=== PATIENT | male | born 1945 | race Caucasian/White ===

== ENCOUNTER 2019-11-24 17:30 | Emergency (ER) | payer MEDICARE, OTHER, SELFPAY ==
[2019-11-24 17:30] VITALS: BP 148/87; PULSE 73; RESP 18; TEMP 36.3; O2SAT 97; BMI 25.8
--- NOTE | 2019-11-24 17:50 | EKG12_ITS ---
Test Reason : HYPOGLYCEMIA Blood Pressure : / mmHG Vent. Rate : 067 BPM Atrial Rate : 067 BPM P-R Int : 170 ms QRS Dur : 082 ms QT Int : 390 ms P-R-T Axes : 062 003 048 degrees QTc Int : 412 ms Normal sinus rhythm Possible Left atrial enlargement Borderline ECG Confirmed by FLAQUITO FLANAGAN, STEPHANIA ([id number]), associate entertainment editor COLEEN VALDEZ ([id number]) on 11/26/2019 12:39:09 PM Referred By: LEENA/PING Confirmed By:STEPHANIA HUDDLESTON MD
--- NOTE | 2019-11-24 17:51 | CT_ITS ---
STUDY: CT head and CTA HEAD AND NECK WITH CONTRAST REASON FOR EXAM: Male, 74 years old. Hypertensive, headache and dizziness x 2 days RADIATION DOSAGE (If Supplied By Facility): CTDIvol = ( 29.17 ) mGy, DLP = ( 1435.92 ) mGycm TECHNIQUE: CT angiography was performed with a multi-detector CT scanner. Data acquisition was obtained from the skull base through the vertex following intravenous administration of IV 100mL Isovue-[id number]. MIP images were reconstructed from the axial data set. Post-processing of the angiographic images was performed, with multiplanar reformation and 3D reconstruction. Individualized dose optimization techniques were used for this CT. COMPARISON: No relevant priors. FINDINGS: Noncontrast CT of the head normal except mild atrophy. Normal bilateral petrous carotid arteries. Normal right cavernous carotid artery with a normal supraclinoid bifurcation. Normal left cavernous carotid artery with a normal supraclinoid bifurcation. There is non-visualization of the right A1 segment of the anterior cerebral arteries consistent with either aplastic development or an occlusion. Normal left A1 segments of the anterior cerebral artery. Normal intact anterior communicating artery (ACOM). Normal bilateral A2 segments of the anterior cerebral arteries. Normal right M1 and M2 segments of the middle cerebral arteries, with a normal M1 bifurcation. Normal left M1 and M2 segments of the middle cerebral arteries, with a normal M1 bifurcation. There is non-visualization of the right posterior communicating artery (PCOM). There is non-visualization of the left posterior communicating artery (PCOM). Normal bilateral vertebral arteries. Normal basilar artery with a normal basilar bifurcation. The visualized bilateral superior cerebellar (SCA) arteries are normal. Normal bilateral P1, P2 and visualized P3 segments of the posterior cerebral arteries. There is no demonstrated aneurysm of the [place]. There is no demonstrated abnormality of the visualized brain. AORTIC ARCH: Normal visualized aortic arch. Normal origins of the brachiocephalic, left common carotid, and left subclavian arteries. RIGHT CAROTID ARTERIES: Normal right common carotid artery (CCA). Normal right common carotid bulb. Normal origin of the right internal carotid (ICA) artery without a hemodynamically significant stenosis. Normal visualized cervical portion of the right internal carotid artery. Normal origin of the right external carotid artery (ECA). LEFT CAROTID ARTERIES: Normal left common carotid artery (CCA). Normal left common carotid bulb. Normal origin of the left internal carotid (ICA) artery without a hemodynamically significant stenosis. Normal visualized cervical portion of the left internal carotid artery. Normal origin of the left external carotid artery (ECA). VERTEBRAL ARTERIES: Calcified plaque at the origin of the left vertebral artery may cause mild to moderate stenosis. Right vertebral artery normal. IMPRESSION: Possible mild to moderate stenosis origin left vertebral artery otherwise Normal CTA Head and neck with contrast. Sensitivity limited without 3-D reformats. ADDENDUM will be performed if and when these become available. Electronically Signed: Camilo Anders MD at 19:39 EDT , Service support , CT/CTA Head AND Neck W/ Contrast
--- NOTE | 2019-11-24 17:55 | ED.VIS.GEN ---
History of Present Illness Chief Complaint: Hypertension Informant: Patient, Family Onset: Days Context: Gradual Onset Timing: Intermittent Current Severity: Moderate Maximum Severity: Moderate Narrative: Patient is a 74-year-old male with medical history significant for hypertension and hyperlipidemia that presents to the emergency department with headache and elevated blood pressure. Patient states that he went to bed Sunday evening just not feeling himself. He states he felt mildly lightheaded. He woke at about 2 in the morning with headache and felt increasingly lightheaded. His states he took his blood pressure and it was 200 systolic. She states normally, he runs 1 20-1 30 systolic. He took another dose of his antihypertensive along with 2 ibuprofen. His headache is resolved he went back to sleep. He states Sunday, he felt okay just mildly lightheaded with change in position. Today he went to work and had recurrence of the symptoms especially with bending. He denies any change in speaking, swallowing, or gait. He denies any weakness. Prior similar symptoms: No Recent Illness/Hospitalization: No Past Medical History - Allergies and Home Meds Allergies/Adverse Reactions: Allergies No Known Allergies Allergy (Verified 11/24/19 17:32) Primary Care Physician: Chicho Lawson MD [NON-STAFF] - Prior records reviewed: Yes Past Medical History: - - Hypertension, hyperlipidemia Surgical History: noncontributory Review of Systems General: Denies: Chills, Fever, Sweats Eyes: Denies: Visual changes - bilaterally, Diplopia ENT: Denies: Rhinorrhea, Sore throat Cardiovascular: Denies: Chest pain, Palpitations Respiratory: Denies: Dyspnea, Cough, Dyspnea on exertion Gastrointestinal: Reports: Nausea. Denies: Abdominal pain, Vomiting, Diarrhea, Melena, Hematochezia Genitourinary: Denies: Dysuria, Hematuria, Frequency Musculoskeletal: Denies: Back pain, Extremity Pain Skin: Denies: Rash, Wounds Neurological: Reports: Headache. Denies: Weakness, Numbness Physical Exam Vital Signs/Narrative: Vital Signs Temp Pulse Resp BP Pulse Ox 11/24/19 17:30 97.4 F L 73 18 148/87 H 97 Inital Vital Signs reviewed: Yes General: Well nourished, Well developed, No Acute Distress Head: Normocephalic, Atraumatic Eyes: Perrl, EOMI ENT: Moist mucous membranes, No rhinorrhea Neck: Supple, Nontender Cardiovascular: Regular rate, Regular rhythm, No murmurs Respiratory: No distress, CTA bilaterally, Chest nontender Abdomen: Soft, Nontender, Nondistended, Normal bowel sounds Back: Nontender, Normal Inspection Extremities: Nontender, No edema Skin: Normal color, No rash Neurological: Alert, Oriented x3, Cranial nerves II-XII grossly intact, Normal Strength, Normal Sensation Psychological: Normal affect, Normal Mood Diagnostic/Tx/Re-eval Clinical Impression(s) from Imaging Studies Head/Neck CTA 11/24/19 17:51 Abnormal Lab Results 11/24/19 11/24/19 18:00 18:00 WBC 7.4 RBC 4.65 Hgb 14.5 Hct 43.3 MCV 93.1 MCH 31.2 MCHC 33.5 RDW Std Deviation 42.0 RDW Coeff of Ruby 12.4 Plt Count 235 MPV 9.5 Immature Gran % (Auto) 0.100 Neut % (Auto) 46.9 L Lymph % (Auto) 42.2 H Childress % (Auto) 9.6 Eos % (Auto) 0.9 Baso % (Auto) 0.3 Absolute Neuts (auto) 3.5 Absolute Lymphs (auto) 3.13 Nucleated RBC % 0 Sodium 143 Potassium 3.7 Chloride 108 H Carbon Dioxide 28.0 Anion Gap 7 BUN 14 Creatinine 0.86 Estim Creat Clear Calc 80.17 Est GFR (MDRD) Af Amer 113 Est GFR (MDRD) Non-Af 93 BUN/Creatinine Ratio 16.3 Glucose 87 Calcium 9.2 Total Bilirubin 0.30 AST 24 ALT 24 Alkaline Phosphatase 81 Total Protein 7.2 Albumin 3.9 Globulin 3.3 Albumin/Globulin Ratio 1.2 - Rhythm Strip Rhythm Strip: Sinus Rhythm Rate: 80 Ectopy: None - Medical Decision Making Patient presents with headache that is since resolved and intermittent dizziness with change in position. It does not seem to be true vertigo. He describes it more as lightheadedness. He is mildly hypertensive with a blood pressure of 157 systolic. His NIH is 0. Given the headache and his hypertension, I did want to rule out dangerous process. The patient underwent CTA. There was no evidence of aneurysm. There is no evidence of acute occlusion. Metabolic work-up was pursued and was unremarkable. The patient has had rather big swings within his blood pressure and is on a very low dose of lisinopril. This may be blood pressure related. He does not have any current neurologic symptoms. At this point, I do feel that he is safe for outpatient follow-up. He and his are comfortable with this plan of care. He will be discharged home. Impression 1. Hypertension 2. Lightheadedness ED Disposition - Plan for ED Patient: Disposition: Home or Assisted Living Instructions: ED Hypertension Established Referrals: Chicho Lawson MD [NON-STAFF] -
[2019-11-24 18:13] LABS: Absolute Lymphocyte Count 3.13 X10^3/uL (0.83-4.51); Absolute Neutrophil Count 3.5 X10^3/uL (2.0-7.7); Basophil# 0.02 X10^3/uL; Basophil% 0.3 % (0-1); Eosinophil# 0.07 X10^3/uL; Eosinophils% 0.9 % (0-5); Hematocrit 43.3 % (40-54); Hemoglobin 14.5 g/dL (13.0-16.5); Lymphocyte # 3.13 X10^3/ul (4.0); Lymphocyte % 42.2 % (19-41); Mean Corp Hgb Conc 33.5 g/dL (32-36); Mean Corpuscular Hgb 31.2 pg (27.0-32.0); Mean Corpuscular Volume 93.1 fL (80-94); Mean Platelet Vol. 9.5 fl (6.2-12.0); Monocyte# 0.71 X10^3/uL; Monocyte% 9.6 % (0-10); NRBC Flagged by Analyzer 0 % (0-5); Neutrophil # 3.47 X10^3/uL (2.7-7.7); Neutrophil % 46.9 % (47-70); Platelet Count 235 K/mm3 (150-450); RBC Distribution Width CV 12.4 % (11.6-14.6); Red Blood Count 4.65 M/mm3 (4.6-6.2); White Blood Count 7.4 K/mm3 (4.4-11.0)
[2019-11-24 18:41] LABS: ALB/GLOB Ratio 1.2 RATIO (0.9-2.4); AST(SGOT) 24 U/L (15-37); Alanine Aminotransfer ALT/SGPT 24 U/L (16-61); Albumin, Serum 3.9 g/dL (3.2-5.0); Alkaline Phosphatase 81 U/L (45-117); Anion Gap 7 (5-15); BUN 14 mg/dL (7-18); BUN/Creat Ratio 16.3 RATIO (10-20); Calcium,Total 9.2 mg/dL (8.5-10.1); Chloride 108 mmol/L (98-107); Creatinine, Serum 0.86 mg/dL (0.70-1.30); EST Glomerular Filtration Rate 93 mL/min (>60); Est Glom Filt Rate - Afr Amer 113 mL/min (>60); Estimated Creatinine Clearance 80.17 ml/min; Globulin 3.3 g/dL (2.2-4.2); Glucose 87 mg/dL (74-106); Potassium 3.7 mmol/L (3.5-5.1); Protein, Total 7.2 g/dL (6.4-8.2); Sodium Level 143 mmol/L (136-145)
[2019-11-24 21:02] VITALS: BP 168/101; PULSE 90; RESP 14; O2SAT 100
== END 2019-11-24 21:03 | disposition home or self-care (01) ==
LOC: ED 18:12
PROVIDERS: Emergency Provider Emergency Medicine; PCP Family Medicine
DX: I10 Essential (primary) hypertension (principal); R42 Dizziness and giddiness; E78.5 Hyperlipidemia, unspecified
CPT/HCPCS: 70496; 70498; 80053; 85025; 93005; 99284; J7040; Q9967; A4216